=== PATIENT | male | born 1935 | race Caucasian/White ===

== ENCOUNTER → 2023-04-13 12:58 | Outpatient (REF) | payer MEDICARE, BC, SELFPAY ==
[2023-04-13 14:08] LABS: % Basophils 1.1 % (0-2); % Eosinophils 5.7 % (0-6); % Immature Granulocytes 0.3 % (0-0.5); % Lymphocytes 40.7 % (20.5-51.1); % Monocytes 10.1 % (1.7-9.3); % Neutrophils 42.1 % (42.2-75.2); Absolute Basophils 0.1 10^3/uL (0-0.2); Absolute Eosinophils 0.4 10^3/uL (0-0.7); Absolute Lymphocytes 3.1 10^3/uL (1.2-3.4); Absolute Monocytes 0.8 10^3/uL (0.1-0.6); Absolute Neutrophils 3.2 10^3/uL (1.4-6.5); Hematocrit 39.2 % (39.0-52.0); Hemoglobin 13.5 g/dL (13.0-18.0); Mean Corp Hgb Conc. 34.4 g/dL (33.0-37.0); Mean Corpuscular Volume 95.8 fL (80.0-94.0); Mean Platelet Volume 10.2 fL (7.4-10.4); Nucleated Red Blood Cells % 0 % (-); Platelet Count 232 10^3/uL (130-400); Red Blood Cell Count 4.09 10^6/uL (4.70-6.10); Red Cell Dist. Width 13.2 % (11.5-14.5); White Blood Cell Count 7.6 10^3/uL (4.8-10.8)
[2023-04-13 14:32] LABS: ALT (SGPT) 19 U/L (0-50); AST (SGOT) 32 U/L (17-59); Albumin 3.6 g/dl (3.5-5.0); Alkaline Phosphatase 94 U/L (38-126); Blood Urea Nitrogen 29 mg/dl (9-20); Calcium 9.3 mg/dl (8.4-10.2); Carbon Dioxide 28 mmol/L (22-30); Chloride 101 mmol/L (98-107); Glucose 99 mg/dl (70-99); HDL Cholesterol 65 mg/dl; Iron 111 ug/dl (49-181); LDL Cholesterol, Calculated 122 mg/dl; Potassium 4.3 mmol/L (3.5-5.1); Sodium 138 mmol/L (135-145); Total Bilirubin 0.7 mg/dl (0.2-1.3); Total Cholesterol 206 mg/dl (50-199); Total Protein 6.5 g/dl (6.3-8.2); Triglyceride 95 mg/dl (10-149); Very Low Density Lipoprotein 19 mg/dl (0-30); eGFR 53.84
[2023-04-13 14:41] LABS: Percent Saturation 42 % (20-50); Total Iron Binding Capacity 260 ug/dl (261-462)
[2023-04-13 14:49] LABS: Vitamin D, 25-OH*** 53.7 ng/mL (30-80)
[2023-04-13 15:03] LABS: Cortisol, Random 15.6 ug/dl
[2023-04-13 15:07] LABS: Ferritin 67.2 ng/ml (17.9-464.0)
[2023-04-13 15:22] LABS: Vitamin B12 797 pg/ml (239-931)
[2023-04-16 02:29] LABS: Insulin, Random 6 uIU/mL
[2023-04-16 16:53] LABS: Free Testosterone 70 pg/mL (47-244); Sex Hormone Binding Globulin 95 nmol/L (19-76); Total Testosterone 730 ng/dL (300-720)
== END ==
LOC: REG 12:58
PROVIDERS: ATTENDING PHYSICIAN Family Medicine
DX: E78.00 Pure hypercholesterolemia, unspecified (principal); F32.9 Major depressive disorder, single episode, unspecified; I63.9 Cerebral infarction, unspecified; I99.9 Unspecified disorder of circulatory system; R53.83 Other fatigue; E03.9 Hypothyroidism, unspecified; R97.20 Elevated prostate specific antigen [PSA]
CPT/HCPCS: 36415; 80053; 80061; 82306; 82533; 82607; 82728; 83525; 83540; 83550; 84153; 84154; 84270; 84402; 84403; 85025

== ENCOUNTER → 2023-04-26 10:54 | Outpatient (REF) | payer MEDICARE, BC, SELFPAY ==
[2023-04-26 12:40] LABS: Free T3 3.16 pg/ml (2.77-5.27); Free T4 0.74 ng/dl (0.78-2.19)
[2023-04-26 12:57] LABS: TSH 3.56 uIU/ml (0.47-4.68)
[2023-04-28 12:03] LABS: Thyroid Peroxidase Ab (TPO) <0.3 IU/mL (0.0-9.0)
[2023-04-28 12:19] LABS: Thyroglobulin 6.4 ng/mL (1.3-31.8); Thyroglobulin Antibodies <0.9 IU/mL (0.0-4.0)
== END ==
LOC: REG 10:54
PROVIDERS: ATTENDING PHYSICIAN Family Medicine
DX: E03.9 Hypothyroidism, unspecified (principal)
CPT/HCPCS: 36415; 84432; 84439; 84443; 84481; 86376; 86800

== ENCOUNTER → 2024-03-24 11:09 | Outpatient (REF) | payer MEDICARE, BC, SELFPAY ==
[2024-03-24 13:25] LABS: % Basophils 1.1 % (0-2); % Eosinophils 5.2 % (0-6); % Immature Granulocytes 0.1 % (0-0.5); % Lymphocytes 38.3 % (20.5-51.1); % Monocytes 10.5 % (1.7-9.3); % Neutrophils 44.8 % (42.2-75.2); Absolute Basophils 0.1 10^3/uL (0-0.2); Absolute Eosinophils 0.4 10^3/uL (0-0.7); Absolute Lymphocytes 2.9 10^3/uL (1.2-3.4); Absolute Monocytes 0.8 10^3/uL (0.1-0.6); Absolute Neutrophils 3.4 10^3/uL (1.4-6.5); Hematocrit 39.4 % (39.0-52.0); Hemoglobin 13.1 g/dL (13.0-18.0); Mean Corp Hgb Conc. 33.2 g/dL (33.0-37.0); Mean Corpuscular Hgb 32.4 pg (27.0-31.0); Mean Corpuscular Volume 97.5 fL (80.0-94.0); Mean Platelet Volume 10.3 fL (7.4-10.4); Nucleated Red Blood Cells % 0 % (-); Platelet Count 263 10^3/uL (130-400); Red Blood Cell Count 4.04 10^6/uL (4.70-6.10); Red Cell Dist. Width 13.4 % (11.5-14.5); White Blood Cell Count 7.5 10^3/uL (4.8-10.8)
[2024-03-24 14:09] LABS: ALT (SGPT) 20 U/L (0-50); AST (SGOT) 35 U/L (17-59); Albumin 4.1 g/dl (3.5-5.0); Alkaline Phosphatase 98 U/L (38-126); Blood Urea Nitrogen 38 mg/dl (9-20); Carbon Dioxide 31 mmol/L (22-30); Chloride 98 mmol/L (98-107); Glucose 99 mg/dl (70-99); Sodium 139 mmol/L (135-145); Total Bilirubin 0.4 mg/dl (0.2-1.3); Total Protein 7.4 g/dl (6.3-8.2)
[2024-03-24 14:26] LABS: Free T3 2.63 pg/ml (2.77-5.27)
[2024-03-24 14:39] LABS: Cortisol, Random 8.1 ug/dl; TSH 6.38 uIU/ml (0.47-4.68)
[2024-03-26 19:56] LABS: Thyroid Peroxidase Ab (TPO) 0.3 IU/mL (0.0-9.0)
[2024-03-26 23:55] LABS: DHEA Sulfate 141 ug/dL (16-123)
== END ==
LOC: REG 11:09
PROVIDERS: ATTENDING PHYSICIAN Family Medicine
DX: E03.9 Hypothyroidism, unspecified (principal); I63.9 Cerebral infarction, unspecified; R53.83 Other fatigue
CPT/HCPCS: 36415; 80053; 82533; 82627; 84443; 84481; 85025; 85300; 86376

== ENCOUNTER 2024-05-30 12:42 | Emergency (ER) | payer MEDICARE, BC, SELFPAY ==
[2024-05-30 12:44] VITALS: BP 156/83
[2024-05-30 13:22] VITALS: BMI 20.8
--- NOTE | 2024-05-30 14:05 | ED.GENMED ---
History of Present Illness
General
Chief Complaint: Fall
Source: patient
Time Seen by Provider: 05/30/24 13:48
History of Present Illness
History of Present Illness:
88-year-old male with past medical history of previous CVA, CAD status post previous PR and CABG presenting to the emergency department for evaluation after he excellently tripped on a stair causing him to fall forward into a wooden board injuring
his right lateral chest/thorax 2 days ago. Patient states that pain gradually got worse which is what prompted him come to the ER. He denies hitting his head, headaches, visual changes, focal weakness or numbness, chest pain, shortness of breath
or any other extremity related concerns. Patient states that movement does cause his pain to be a little bit worse but he has not taken anything for pain since the initial injury. Patient denies any use of anticoagulant
Past History
Past History
ED Past Medical History: CVA (2007), Hypercholesterolemia, PR (20 years ago), Hypothyroidism, Other (Back spasms ), Other (cva ) and Other (Vertigo); Negative HTN
ED Past Surgical History: Cardiac, Orthopedic and Other
Social History
Tobacco: Former smoker
Alcohol: None
Drug: None
Personal:
Living: with family
Employment: Retired
Family History
Family History: Hypertension and CAD; Negative Sudden
Review of Systems
Review of Systems
All Other Systems: ROS reviewed and negative except as documented in HPI and ROS
Phy Exam
Physical Exam
Physical Exam:
GENERAL: Alert , in no apparent distress, ambulating without assistive device, no acute distress
EYE: conjunctiva clear
NECK: Supple, no significant adenopathy.
ENT: o/p clr, mmm.
CARDIAC: Regular rate and rhythm
LUNGS: Clear breath sounds bilaterally, no acute respiratory distress, no wheezes/rales/rhonchi
CHEST WALL: No focal bony tenderness, there is small contusion to the left posterolateral thorax, no bony step-off, no crepitus
NEUROLOGICAL: Alert and oriented
SKIN: Warm and dry, skin intact.
MUSCULOSKELETAL: well perfused.
PSYCH: Normal and appropriate interaction.
Scores
Heart Failure Risk
Heart Failure Risk Score: Not Applicable
Heart Score for Chest Pain Patients
STEMI patient?: Not applicable
Withdrawal Assessment of Alcohol
Withdrawal Assessment Completed?: Not applicable
Course
Orders/Labs/Results
Orders:
Orders
05/30/24 12:47
CR Ribs-right 3 Vw W/pa Chest* Urgent
Comment:
Reason For Exam: fall, pain
05/30/24 14:04
Acetaminophen [Tylenol] 650 mg PO NOW STA
Vital Signs
Initial and Last Documented VS:
Initial Vital Signs
Temp Pulse Resp BP Pulse Ox
97.4 F 91 18 156/83 98
05/30/24 12:44 05/30/24 12:44 05/30/24 12:44 05/30/24 12:44 05/30/24 12:44
Last Documented Vital Signs
Temp Pulse Resp BP Pulse Ox
97.4 F 91 18 156/83 98
05/30/24 12:44 05/30/24 12:44 05/30/24 12:44 05/30/24 12:44 05/30/24 12:44
MDM/Problems Addressed
Differential Diagnosis Includes:
Rib fracture, rib contusion, pneumothorax, visceral injury
MDM/Problems Addressed:
88-year-old male presenting to the ER for evaluation following an accidental fall 2 days ago resulting in right-sided rib pain. There was no reported head injury. Patient noting pain to the right posterior lateral rib area. X-ray was ordered
which does not show any fracture. Patient hemodynamically stable. Concern for visceral injury is minimal. Advised Motrin/Tylenol as needed for pain. Patient may follow-up with primary care provider. Aware of return precautions to the ER.
*Radiology
Radiology exam reviewed: preliminary read by ED provider (No acute fracture)
*Pulse Oximetry
Patient hypoxic: no
ED Attending Note
-
Portions of this chart may have been created with voice recognition software.� Occasional wrong word or��sound alike� substitutions may have occurred due to the inherent limitations of voice recognition software.
Discharge Plan
Departure
Patient Disposition: Home (Routine Discharge)
Date of Disposition: 05/30/24
Time of Disposition: 14:05
Patient with high blood pressure during this ER visit?: Yes
Discharge Problem:
Contusion of rib on right side
Instructions: Rib fracture or bruised rib - ED discharge instructions
Prescriptions:
No Action
No Meds [No Current Medications]
hydrocortisone acetate 25 MG suppository
25 mg FL HS Qty: 10 0RF
docusate sodium [Colace] 100 MG capsule
100 mg PO BID Qty: 20 0RF
Referrals:
Agustin Germain DO [Family Provider] -
Interventions
Interventions:
*Risk Screen - Suicide Last Done: 05/30/24 12:44
*General Assessment Last Done: 05/30/24 12:44
*ED COVID-19 Vaccine History Last Done: 05/30/24 12:44
ED-Musculoskeletal Assessment Last Done: 05/30/24 13:22
ED- Neurological Assessment Last Done: 05/30/24 13:22
ED-Skin Assessment Last Done: 05/30/24 13:22
Discharge Date and Time
Print Language: SAMMARINESE
[2024-05-30] MEDS: TYLENOL 650 MG PO (14:10)
[2024-05-30 14:14] VITALS: BP 154/82
== END 2024-05-30 14:16 | disposition home or self-care (01) ==
LOC: EMR 12:42
PROVIDERS: EMERGENCY PHYSICIAN Student in an Organized Health Care Education/Training Program; FAMILY PHYSICIAN Family Medicine
DX: S20.211A Contusion of right front wall of thorax, initial encounter (principal); W10.9XXA Fall (on) (from) unspecified stairs and steps, initial encounter; E78.00 Pure hypercholesterolemia, unspecified; I25.2 Old myocardial infarction; E03.9 Hypothyroidism, unspecified; I25.10 Atherosclerotic heart disease of native coronary artery without angina pectoris; Z86.73 Personal history of transient ischemic attack (TIA), and cerebral infarction without residual deficits; Z87.891 Personal history of nicotine dependence; Z95.1 Presence of aortocoronary bypass graft
CPT/HCPCS: 99283; 71101

== ENCOUNTER → 2024-11-21 11:51 | Outpatient (REF) | payer MEDICARE, BC, SELFPAY ==
[2024-11-21 12:40] LABS: Hematocrit 39.5 % (39.0-52.0); Hemoglobin 12.9 g/dL (13.0-18.0); Mean Corp Hgb Conc. 32.7 g/dL (33.0-37.0); Mean Corpuscular Volume 97.1 fL (80.0-94.0); Nucleated Red Blood Cells % 0 % (-); Platelet Count 283 10^3/uL (130-400); Red Cell Dist. Width 13.6 % (11.5-14.5)
[2024-11-21 13:44] LABS: HDL Cholesterol 73 mg/dl; LDL Cholesterol, Calculated 160 mg/dl; Very Low Density Lipoprotein 18 mg/dl (0-30)
[2024-11-21 13:47] LABS: Glycohemoglobin (HgbA1c) 5.5 % (4.0-5.6)
[2024-11-21 14:01] LABS: Free T3 2.29 pg/ml (2.77-5.27)
[2024-11-21 14:16] LABS: TSH 10.60 uIU/ml (0.47-4.68)
[2024-11-21 14:58] LABS: PSA, Total - Screen 254.00 ng/ml (0.0-4.0)
== END ==
LOC: REG 11:51
PROVIDERS: ATTENDING PHYSICIAN Family Medicine
DX: E03.9 Hypothyroidism, unspecified (principal); E78.00 Pure hypercholesterolemia, unspecified; R97.20 Elevated prostate specific antigen [PSA]; R73.09 Other abnormal glucose; Z12.5 Encounter for screening for malignant neoplasm of prostate
CPT/HCPCS: 36415; 80061; 83036; 83525; 84432; 84439; 84443; 84481; 85025; 86376; 86800; G0103